=== PATIENT | male | born 1960 ===

== ENCOUNTER 2025-05-10 05:20 | Emergency (ER) | payer SELFPAY ==
[2025-05-10] VITALS (12 sets, daily range): BP systolic 139–190; BP diastolic 81–106; PULSE 72–94; RESP 13–25; TEMP 37.1; O2SAT 94–98; BMI 23.0
--- NOTE | 2025-05-10 05:31 | ED.MALEGU ---
HPI - Male Genitourinary <Brendon Echols DO - Last Filed: 05/10/25 05:42> General Chief complaint: Abdominal Pain Stated complaint: testicular pain Time Seen by Provider: 05/10/25 05:30 History of Present Illness HPI Narrative: 64-year-old gentleman history of dyslipidemia presents with right inguinal hernia pain after lifting a garbage bag a few weeks ago seen at would be ER multiple times brought in via EMS for pain control today. Patient denies any fever, chills, chest pain, shortness of breath, nausea, vomiting, back pain, penile discharge, or other inciting event, that may have caused this pain. He has a surgical appointment on May 23 but the pain medicine is no longer working at this time as brought in for further evaluation today. Other than what is stated 14 point review of system is negative. Related Data Previous Rx's ?Medication ?Instructions ?Recorded hydrocodone 5 mg-acetaminophen 325 1 tab PO Q4-6H PRN pain #12 tabs 05/10/25 mg tablet sulfamethoxazole 800 1 tab PO BID #28 tabs 05/10/25 mg-trimethoprim 160 mg tablet Allergies Allergy/AdvReac Type Severity Reaction Status Date / Time No Known Drug Allergies Allergy Verified 05/10/25 05:36 Review of Systems <Brendon Echols, - Last Filed: 05/10/25 05:42> Review of Systems ROS Unobtainable: All systems reviewed & are unremarkable except as noted in HPI and below Patient History <Brendon Echols DO - Last Filed: 05/10/25 05:42> Social History Smoking Status: Current every day smoker Exam <Brendon Echols DO - Last Filed: 05/10/25 05:42> Narrative Exam Narrative: GENERAL: [64] year old patient appears stated age. Well-developed patient, in mild distress. HEAD: Atraumatic. Normocephalic. EYES: Pupils equal round and reactive. Extraocular motions intact. No scleral icterus. No injection or drainage. NECK: Trachea midline. Non tender CARDIOVASCULAR: Regular rate and rhythm without murmurs, gallops, or rubs. RESPIRATORY: Clear to auscultation. Breath sounds equal bilaterally. No wheezes, rales, or rhonchi. GASTROINTESTINAL: Abdomen soft, non-tender, nondistended. : R inguinal hernia TTP EXTREMITIES: No edema or joint tenderness. BACK: Nontender without deformity or crepitance. No flank tenderness. NEURO: AOx3. SKIN: No rash or erythema of visible areas Initial Vital Signs Initial Vital Signs: Vital Signs Pulse Rate 83 05/10/25 05:29 Pulse Oximetry 98 05/10/25 05:29 <Eduardo Phelps MD - Last Filed: 05/10/25 09:03> Narrative Exam Narrative: GENERAL: [64] year old patient appears stated age. Well-developed patient, in mild distress. HEAD: Atraumatic. Normocephalic. EYES: Pupils equal round and reactive. Extraocular motions intact. No scleral icterus. No injection or drainage. NECK: Trachea midline. Non tender CARDIOVASCULAR: Regular rate and rhythm without murmurs, gallops, or rubs. RESPIRATORY: Clear to auscultation. Breath sounds equal bilaterally. No wheezes, rales, or rhonchi. GASTROINTESTINAL: Abdomen soft, non-tender, nondistended. : R inguinal hernia TTP, left testicular area painful to palpation EXTREMITIES: No edema or joint tenderness. BACK: Nontender without deformity or crepitance. No flank tenderness. NEURO: AOx3. SKIN: No rash or erythema of visible areas Initial Vital Signs Initial Vital Signs: Vital Signs Pulse Rate 83 05/10/25 05:29 Pulse Oximetry 98 05/10/25 05:29 Course <Brendon Echols DO - Last Filed: 05/10/25 05:42> Orders Ordered: ED Orders 05/10/25 05:37 CT abdomen pelvis w con Stat 05/10/25 06:10 Complete Blood Count AUTO DIFF Stat Comprehensive Metabolic Panel Stat Lipase Stat 05/10/25 07:30 UA dip and micro [Urinalysis and Microscopic] Stat Hydromorphone HCl (Hydromorphone Hcl 0.5 Mg/0.5 Ml Syringe) 0.5 mg IV NOW PRN PRN Reason: Pain, Severe (7-10) Last Admin: 05/10/25 06:39 Dose: 0.5 mg Documented By: [facility] Ondansetron HCl (Ondansetron 4 Mg/2 Ml Inj) 4 mg IV NOW PRN PRN Reason: Nausea And Vomiting Ondansetron HCl (Ondansetron 4 Mg Odt) 4 mg PO NOW PRN PRN Reason: Nausea And Vomiting Discontinued Medications Lactated Ringer's (Lactated Ringers) 1,000 mls @ 1,000 mls/hr IV BOLUS ONE Stop: 05/10/25 06:36 Last Infusion: 05/10/25 07:22 Dose: Infused Documented By: Admin: 05/10/25 06:13 Dose: 1,000 mls/hr Documented By: DEVENDRA Ketorolac Tromethamine (Ketorolac 30 Mg/Ml Vial) 30 mg IV NOW ONE Stop: 05/10/25 05:38 Last Admin: 05/10/25 06:11 Dose: 30 mg Documented By: DEVENDRA Vital Signs Vital signs: Vital Signs - 8 hr 05/10/25 05:29 05/10/25 05:30 05/10/25 05:30 Temperature Pulse Rate 83 75 Respiratory Rate Blood Pressure 177/106 H Pulse Oximetry 98 98 Oxygen Delivery Method 05/10/25 05:35 05/10/25 06:00 05/10/25 06:25 Temperature 98.7 F Pulse Rate 74 84 Respiratory Rate 18 Blood Pressure 177/106 H 190/91 H Pulse Oximetry 97 97 Oxygen Delivery Method Room Air 05/10/25 06:25 Temperature Pulse Rate 94 H Respiratory Rate 18 Blood Pressure Pulse Oximetry 95 Oxygen Delivery Method Room Air <Eduardo Phelps MD - Last Filed: 05/10/25 09:03> Orders Ordered: ED Orders 05/10/25 05:37 CT abdomen pelvis w con Stat 05/10/25 06:10 Complete Blood Count AUTO DIFF Stat Comprehensive Metabolic Panel Stat Lipase Stat 05/10/25 07:30 UA dip and micro [Urinalysis and Microscopic] Stat Hydromorphone HCl (Hydromorphone Hcl 0.5 Mg/0.5 Ml Syringe) 0.5 mg IV NOW PRN PRN Reason: Pain, Severe (7-10) Last Admin: 05/10/25 06:39 Dose: 0.5 mg Documented By: DEVENDRA Ondansetron HCl (Ondansetron 4 Mg/2 Ml Inj) 4 mg IV NOW PRN PRN Reason: Nausea And Vomiting Ondansetron HCl (Ondansetron 4 Mg Odt) 4 mg PO NOW PRN PRN Reason: Nausea And Vomiting Discontinued Medications Lactated Ringer's (Lactated Ringers) 1,000 mls @ 1,000 mls/hr IV BOLUS ONE Stop: 05/10/25 06:36 Last Infusion: 05/10/25 07:22 Dose: Infused Documented By: Admin: 05/10/25 06:13 Dose: 1,000 mls/hr Documented By: DEVENDRA Ketorolac Tromethamine (Ketorolac 30 Mg/Ml Vial) 30 mg IV NOW ONE Stop: 05/10/25 05:38 Last Admin: 05/10/25 06:11 Dose: 30 mg Documented By: DEVENDRA Reevaluation(s) Reevaluation #1: Upon re-evaluation patient's pain is more in the left testicular region. Consultations Consultation #1: Consultation was made with general surgeon Dr. Norman who reviewed the CT exam and examined the patient at bedside. It was determined that the patient did not have inguinal hernias based upon the CT and the physical exam. The patient more likely dealing with an epididymitis picture Vital Signs Vital signs: Vital Signs - 8 hr 05/10/25 05:29 05/10/25 05:30 05/10/25 05:30 Temperature Pulse Rate 83 75 Respiratory Rate Blood Pressure 177/106 H Pulse Oximetry 98 98 Oxygen Delivery Method 05/10/25 05:35 05/10/25 06:00 05/10/25 06:25 Temperature 98.7 F Pulse Rate 74 84 Respiratory Rate 18 Blood Pressure 177/106 H 190/91 H Pulse Oximetry 97 97 Oxygen Delivery Method Room Air 05/10/25 06:25 Temperature Pulse Rate 94 H Respiratory Rate 18 Blood Pressure Pulse Oximetry 95 Oxygen Delivery Method Room Air MDM - Male Genitourinary <Brendon Echols, - Last Filed: 05/10/25 05:42> Lab Data 05/10/25 06:10 05/10/25 06:10 Labs: Lab Results 05/10/25 05/10/25 Range/Units 06:10 07:30 WBC 8.9 (4.5-11.0) X10^3/uL RBC 4.52 (4.5-5.9) X10^6/uL Hgb 14.8 (13.5-17.5) g/dL Hct 42.7 (41-53) % MCV 94.5 (80-100) fL MCH 32.6 (26-34) PG MCHC 34.5 (30-36) % RDW 13.2 (11.6-14.8) % Plt Count 317 (150-400) X10^3/uL Neut % (Auto) 50.8 (50-75) % Lymph % (Auto) 39.5 (25-40) % [place] % (Auto) 6.4 (3-14) % Eos % (Auto) 2.8 (2-4) % Baso % (Auto) 0.5 (0-2) % Neut # (Auto) 4500 (5785-9493) /uL Lymph # (Auto) 3500 (8339-9305) /uL [place] # (Auto) 600 (0-900) /uL Eos # (Auto) 200 (0-450) /uL Baso # (Auto) 0 (0-100) /uL Sodium 140 (137-145) mmol/L Potassium 4.3 (3.4-5.1) mmol/L Chloride 107 (98-107) mmol/L Carbon Dioxide 25 (22-32) mmol/L BUN 12 (9-20) mg/dL Creatinine 0.79 (0.66-1.25) mg/dL Estimated GFR > 60 (>60) mL/min BUN/Creatinine Ratio 15.2 (6-22) Glucose 105 H (70-99) mg/dL Calcium 9.2 (8.4-10.2) mg/dL Total Bilirubin 0.5 (0.2-1.3) mg/dL AST 34 (17-59) IU/L ALT 42 (<50) IU/L Alkaline Phosphatase 79 (38-126) U/L Total Protein 7.9 (6.3-8.2) g/dL Albumin 4.5 (3.5-5.0) g/dL Globulin 3.4 (1.7-4.1) g/dL Albumin/Globulin Ratio 1.3 (1.0-2.8) Lipase 261 (23-300) U/L Urine Color Yellow Urine Appearance Clear Urine pH 5.5 (4.5-8.0) Ur Specific [place] <=1.005 (1.000-1.035) Urine Protein Negative (Negative) Urine Glucose (UA) Negative (Negative) g/dL Urine Ketones Negative (NEGATIVE) Urine Occult Blood Negative (Negative) Urine Nitrate Negative (Negative) Urine Bilirubin Negative (NEGATIVE) Urine Urobilinogen 0.2 (0.2) E.U./dL Ur Leukocyte Esterase Negative (NEGATIVE) Urine RBC None seen (0-5/HPF) Urine WBC None seen (0-5/HPF) Ur Squamous Epith Cells 0-1 /hpf (0-5/HPF) Urine Bacteria None seen (None) Ur Culture Indicated? Cult not indicated Vol Urine Centrifuged 10ml (spun) Urine Dip Bedside Urine Glucose Negative Bedside Urine Bilirubin - Negative Bedside Urine Ketone - Negative Urine Specific [place] 1.010 Bedside Urine Occult Blood - Negative Bedside Urine pH 6.0 Bedside Urine Protein - Negative Bedside Urine Urobilinogen 0.2 Bedside Urine Nitrite - Negative Bedside Urine Leukocytes - Negative Esterase <Eduardo Phelps MD - Last Filed: 05/10/25 09:03> Differential Diagnosis Differential diagnosis: Likely urinary tract infection, urethritis, epididymitis and inguinal hernia Lab Data Labs: Lab Results 05/10/25 05/10/25 Range/Units 06:10 07:30 WBC 8.9 (4.5-11.0) X10^3/uL RBC 4.52 (4.5-5.9) X10^6/uL Hgb 14.8 (13.5-17.5) g/dL Hct 42.7 (41-53) % MCV 94.5 (80-100) fL MCH 32.6 (26-34) PG MCHC 34.5 (30-36) % RDW 13.2 (11.6-14.8) % Plt Count 317 (150-400) X10^3/uL Neut % (Auto) 50.8 (50-75) % Lymph % (Auto) 39.5 (25-40) % [place] % (Auto) 6.4 (3-14) % Eos % (Auto) 2.8 (2-4) % Baso % (Auto) 0.5 (0-2) % Neut # (Auto) 4500 (5406-9786) /uL Lymph # (Auto) 3500 (3666-5343) /uL [place] # (Auto) 600 (0-900) /uL Eos # (Auto) 200 (0-450) /uL Baso # (Auto) 0 (0-100) /uL Sodium 140 (137-145) mmol/L Potassium 4.3 (3.4-5.1) mmol/L Chloride 107 (98-107) mmol/L Carbon Dioxide 25 (22-32) mmol/L BUN 12 (9-20) mg/dL Creatinine 0.79 (0.66-1.25) mg/dL Estimated GFR > 60 (>60) mL/min BUN/Creatinine Ratio 15.2 (6-22) Glucose 105 H (70-99) mg/dL Calcium 9.2 (8.4-10.2) mg/dL Total Bilirubin 0.5 (0.2-1.3) mg/dL AST 34 (17-59) IU/L ALT 42 (<50) IU/L Alkaline Phosphatase 79 (38-126) U/L Total Protein 7.9 (6.3-8.2) g/dL Albumin 4.5 (3.5-5.0) g/dL Globulin 3.4 (1.7-4.1) g/dL Albumin/Globulin Ratio 1.3 (1.0-2.8) Lipase 261 (23-300) U/L Urine Color Yellow Urine Appearance Clear Urine pH 5.5 (4.5-8.0) Ur Specific [place] <=1.005 (1.000-1.035) Urine Protein Negative (Negative) Urine Glucose (UA) Negative (Negative) g/dL Urine Ketones Negative (NEGATIVE) Urine Occult Blood Negative (Negative) Urine Nitrate Negative (Negative) Urine Bilirubin Negative (NEGATIVE) Urine Urobilinogen 0.2 (0.2) E.U./dL Ur Leukocyte Esterase Negative (NEGATIVE) Urine RBC None seen (0-5/HPF) Urine WBC None seen (0-5/HPF) Ur Squamous Epith Cells 0-1 /hpf (0-5/HPF) Urine Bacteria None seen (None) Ur Culture Indicated? Cult not indicated Vol Urine Centrifuged 10ml (spun) Urine Dip Bedside Urine Glucose Negative Bedside Urine Bilirubin - Negative Bedside Urine Ketone - Negative Urine Specific [place] 1.010 Bedside Urine Occult Blood - Negative Bedside Urine pH 6.0 Bedside Urine Protein - Negative Bedside Urine Urobilinogen 0.2 Bedside Urine Nitrite - Negative Bedside Urine Leukocytes - Negative Esterase MDM Narrative Medical decision making narrative: Based on the consultation by General surgery, review of CT of the abdomen, physical examination determine more likely dealing with an acute epididymitis. We will treat the patient with Bactrim twice a day for 2 weeks. Also given some pain medication. Discharge Plan Departure Patient Disposition: Home Clinical Impression: Acute epididymitis Instructions: DI for Epididymitis Activity Restrictions/Additional Instructions: f/up with urology/pcp in 3-4 days if not improved Prescriptions: New sulfamethoxazole-trimethoprim 800-160 mg tablet 1 tab PO BID Qty: 28 0RF hydrocodone-acetaminophen 5-325 mg tablet 1 tab PO Q4-6H PRN (Reason: pain) Qty: 12 0RF Stand Alone Forms: Patient Portal/API
--- NOTE | 2025-05-10 05:37 | DI.CT.S_ITS ---
PROCEDURE: CT ABDOMEN PELVIS W CON INDICATIONS: R inguinal hernia TECHNIQUE: After the administration of intravenous contrast, axial sections acquired from the lung bases to the pubic symphysis. Coronal and sagittal reformats were performed. For radiation dose reduction, the following was used: automated exposure control, adjustment of mA and/or kV according to patient size. COMPARISON: None. FINDINGS: Image quality: Diagnostic. Lower Chest: No significant findings. ABDOMEN: Liver: No solid mass. Gallbladder: No radiopaque gallstones or wall thickening. Biliary ducts: No biliary dilation. Pancreas: No ductal dilation. Spleen: Size is within normal limits. Adrenal Glands: No adrenal nodules. Kidneys and Ureters: No hydronephrosis. No solid mass. No complex renal cystic lesion which requires follow up. Too numerous to count bilateral cysts are predominantly subcentimeter. Stomach and Bowel: Normal colonic caliber, without significant wall thickening. Peritoneum: No abnormal intraperitoneal fluid. No free air. Ventral Wall: No significant ventral hernia. Abdominal Nodes: No retroperitoneal or mesenteric adenopathy by size criteria. Vessels: Aorta and inferior vena cava are normal in size. PELVIS: Pelvic Organs: The prostate is enlarged measuring 4.7 cm in diameter. Dystrophic calcification is present.. Bladder: No focal or suspicious bladder wall thickening, accounting for underdistention. Minimal perivesicular inflammation is present. Pelvic Nodes: No enlarged lymph nodes. Miscellaneous: No inguinal hernias are seen. Bones: No aggressive osseous abnormality. IMPRESSION: No inguinal hernia. No acute abdominal process. Specifically, no bowel obstruction or herniation. Findings of prostatic hyperplasia. Correlate with lower urinary tract symptoms. This is concordant with the preliminary interpretation. Dictated by: Rafia Mitchell M.D. on 05/10/2025 at 8:38 Approved by: Rafia Mitchell M.D. on 05/10/2025 at 8:44
[2025-05-10] MEDS: KETOROLAC 30 MG/ML VIAL IV (06:11)
[2025-05-10] MEDS: LACTATED RINGERS 1,000 ML 1000 ML IV (06:13)
[2025-05-10 06:19] LABS: Add Manual Diff / Slide Review NO; Hematocrit 42.7 % (41-53); Hemoglobin 14.8 g/dL (13.5-17.5); Lymphocytes Absolute Auto 3500 /uL (1100-4500); Mean Corpuscular HGB Conc 34.5 % (30-36); Mean Corpuscular Hemoglobin 32.6 PG (26-34); Mean Corpuscular Volume 94.5 fL (80-100); Platelet Count 317 X10^3/uL (150-400)
[2025-05-10 06:30] LABS: Alanine Aminotransferase 42 IU/L (<50); Albumin 4.5 g/dL (3.5-5.0); Albumin Globulin Ratio 1.3 (1.0-2.8); Alkaline Phosphatase 79 U/L (38-126); Blood Urea Nitrogen 12 mg/dL (9-20); Calcium 9.2 mg/dL (8.4-10.2); Carbon Dioxide 25 mmol/L (22-32); Chloride 107 mmol/L (98-107); Estimated Glomerular Filt Rate > 60 mL/min (>60); Globulin 3.4 g/dL (1.7-4.1); Glucose 105 mg/dL (70-99); HEMOLYSIS < 15 (0-50); Lipase 261 U/L (23-300); Potassium 4.3 mmol/L (3.4-5.1); Sodium 140 mmol/L (137-145); Total Protein 7.9 g/dL (6.3-8.2)
[2025-05-10 08:30] LABS: Appearance Urine UA CLEAR; Bilirubin Urine UA NEGATIVE (NEGATIVE); Color Urine UA YELLOW; Glucose Urine UA NEGATIVE (Negative); Ketones Urine UA NEGATIVE (NEGATIVE); Leukocyte Esterase Urine UA NEGATIVE (NEGATIVE); Nitrite Urine UA NEGATIVE (Negative); Occult Blood Urine UA NEGATIVE (Negative); Protein Urine UA NEGATIVE (Negative); Specific Gravity Urine UA <=1.005 (1.000-1.035); Urobilinogen Urine UA 0.2 E.U./dL (0.2); pH Urine UA 5.5 (4.5-8.0)
[2025-05-10 08:42] LABS: Culture Indicated Urine Cult Not Indicated
--- NOTE | 2025-05-10 08:46 | PM.CN.IH.1 ---
History of Present Illness Consult details Date Patient Seen: 05/10/25 Time Patient Seen: 08:47 Chief complaint: testicular pain Narrative: Patient is a 64-year-old, not sexually active, male presents with about 3 weeks of right testicular pain. He states it causes significant problems. Meds Home Medications and Allergies Home Medications ?Medication ?Instructions ?Recorded ?Confirmed ?Type hydrocodone 5 mg-acetaminophen 325 1 tab PO Q4-6H PRN pain #12 tabs 05/10/25 Rx mg tablet sulfamethoxazole 800 1 tab PO BID #28 tabs 05/10/25 Rx mg-trimethoprim 160 mg tablet Allergies Allergy/AdvReac Type Severity Reaction Status Date / Time No Known Drug Allergies Allergy Verified 05/10/25 05:36 Review of Systems Review of Systems ROS: Yes All systems reviewed with the patient and are negative except as otherwise documented Exam Vital Signs (past 8 hours): - 05/10/25 05:29 05/10/25 05:30 05/10/25 05:30 Temperature Pulse Rate 83 75 Respiratory Rate Blood Pressure 177/106 H Pulse Oximetry 98 98 Oxygen Delivery Method 05/10/25 05:35 05/10/25 06:00 05/10/25 06:25 Temperature 98.7 F Pulse Rate 74 84 Respiratory Rate 18 Blood Pressure 177/106 H 190/91 H Pulse Oximetry 97 97 Oxygen Delivery Method Room Air 05/10/25 06:25 Temperature Pulse Rate 94 H Respiratory Rate 18 Blood Pressure Pulse Oximetry 95 Oxygen Delivery Method Room Air Oxygen Delivery Method Room Air Narrative Exam Narrative: The testicles are not swollen. The right testicle is indurated with exquisite tenderness in the epididymis with induration. Objective Imaging CT scan - abdomen: My impression: Per my review I do not see a hernia on either side. Radiologist's impression: Pending Labs 05/10/25 06:10 05/10/25 06:10 Labs: Laboratory Results - last 24 hr 05/10/25 05/10/25 06:10 07:30 WBC 8.9 RBC 4.52 Hgb 14.8 Hct 42.7 MCV 94.5 MCH 32.6 MCHC 34.5 RDW 13.2 Plt Count 317 Neut % (Auto) 50.8 Lymph % (Auto) 39.5 [place] % (Auto) 6.4 Eos % (Auto) 2.8 Baso % (Auto) 0.5 Neut # (Auto) 4500 Lymph # (Auto) 3500 [place] # (Auto) 600 Eos # (Auto) 200 Baso # (Auto) 0 Sodium 140 Potassium 4.3 Chloride 107 Carbon Dioxide 25 BUN 12 Creatinine 0.79 Estimated GFR > 60 BUN/Creatinine Ratio 15.2 Glucose 105 H Calcium 9.2 Total Bilirubin 0.5 AST 34 ALT 42 Alkaline Phosphatase 79 Total Protein 7.9 Albumin 4.5 Globulin 3.4 Albumin/Globulin Ratio 1.3 Lipase 261 Urine Color Yellow Urine Appearance Clear Urine pH 5.5 Ur Specific [place] <=1.005 Urine Protein Negative Urine Glucose (UA) Negative Urine Ketones Negative Urine Occult Blood Negative Urine Nitrate Negative Urine Bilirubin Negative Urine Urobilinogen 0.2 Ur Leukocyte Esterase Negative Urine RBC None seen Urine WBC None seen Ur Squamous Epith Cells 0-1 /hpf Urine Bacteria None seen Ur Culture Indicated? Cult not indicated Vol Urine Centrifuged 10ml (spun) PFS Tobacco & Substance Use Smoking Status: Current every day smoker Assessment & Plan Assessment and plan (1) Epididymitis, right: Status: Acute Plan Recommend a 2 week course of Bactrim DS. I also recommend that he follow up with his primary care within the next 10-14 days Time-Based Coding :: 30 minutes spent with patient and on the chart (including review of chart, obtaining history, exam, reviewing outside data, placing orders, documenting exam and treatment plan, and counseling patient) on [DATE]. PROFEE Charge Codes Inpatient or Observation consultation: [id number]
== END 2025-05-10 09:21 | disposition home or self-care (01) ==
PROVIDERS: Family Medicine; Emergency Provider Family Medicine
DX: N45.1 Epididymitis (principal)
CPT/HCPCS: 36415; 74177; 80053; 81001; 81003; 83690; 85025; 96361; 96374; 96375; 99284; J1171; J1885; Q9967